=== PATIENT | female | born 1985 | race Caucasian/White ===

== ENCOUNTER → 2019-02-20 | Outpatient (CLI) | payer MEDICAID | LOC: LABWHC1 17:20 | PROVIDERS: ATTEND Family Medicine | DX: R07.9 Chest pain, unspecified (principal) | CPT/HCPCS: 36415; 93005 ==

== ENCOUNTER 2020-10-14 08:37 | Emergency (ER) | payer MEDICAID ==
[2020-10-14 08:56] VITALS: RESP 18
[2020-10-14] MEDS ORDERED: NITROGLYCERIN SL TABS 0.4 MG TAB SUBLINGUAL STA (09:11)
[2020-10-14] MEDS ORDERED: ASPIRIN 81 MG PO STA (09:11)
--- NOTE | 2020-10-14 09:23 | ED ---
Chest Pain HPI - General Chief Complaint: Chest Pain Stated Complaint: Chest/Back Pain Time Seen by Provider: 10/14/20 09:02 Source: patient, RN notes reviewed Mode of arrival: ambulatory Limitations: no limitations - History of Present Illness Initial Comments: 34-year-old female presented emergency Department chief complaint chest, back and shoulder pain. Patient states started a couple days ago. She thought it was initially straight to ALLERGIES and which she is taking Claritin and Benadryl. Patient states that has not helped and she is not taking this morning. Patient states her some pressure feeling. She has some congestion, shortness of breath no fevers or chills no significant headache dizziness abdominal pain. Patient does not have a specific cardiac or lung disease. Patient states she has not taken anything for the pain. Nothing necessarily makes pain feel better or worse at this moment - Related Data Home Medications Medication Instructions Recorded Confirmed Albuterol Inhaler [Ventolin Hfa 1 - 2 puff INHALATION RT-QID PRN 10/14/20 10/14/20 Inhaler] Loratadine [Claritin] 10 mg PO DAILY 10/14/20 10/14/20 diphenhydrAMINE [Benadryl] 25 mg PO QID PRN 10/14/20 10/14/20 Allergies Allergy/AdvReac Type Severity Reaction Status Date / Time No Known Allergies Allergy Verified 10/14/20 09:47 Review of Systems ROS Statement: Those systems with pertinent positive or pertinent negative responses have been documented in the HPI. ROS Other: All systems not noted in ROS Statement are negative. EKG Findings - EKG Comments: EKG Findings:: EKG performed at 9:07 sinus rhythm with short [place], rate of 72 [place] 98 QRS 94 QT/QTC 374/409 EKG was reviewed with prior 02/20/2019, no acute changes. Past Medical History Additional Past Medical History / Comment(s): sees retail stock clerk "off ekg", seasonal allergies History of Any Multi-Drug Resistant Organisms: None Reported Past Surgical History: No Surgical Hx Reported Past Psychological History: No Psychological Hx Reported Smoking Status: Former smoker Past Alcohol Use History: None Reported Past Drug Use History: None Reported General Exam Limitations: no limitations General appearance: alert, in no apparent distress Head exam: Present: atraumatic, normocephalic, normal inspection Eye exam: Present: normal appearance, PERRL, EOMI. Absent: scleral icterus, conjunctival injection, periorbital swelling ENT exam: Present: normal exam, normal oropharynx, mucous membranes moist Neck exam: Present: normal inspection, full ROM. Absent: tenderness, meningismus, lymphadenopathy Respiratory exam: Present: normal lung sounds bilaterally. Absent: respiratory distress, wheezes, rales, rhonchi, stridor Cardiovascular Exam: Present: regular rate, normal rhythm, normal heart sounds. Absent: systolic murmur, diastolic murmur, rubs, gallop, clicks GI/Abdominal exam: Present: soft, normal bowel sounds. Absent: distended, tenderness, guarding, rebound, rigid Neurological exam: Present: alert, oriented X3, CN II-XII intact, reflexes normal. Absent: motor sensory deficit Skin exam: Present: warm, dry, intact, normal color. Absent: rash Course Vital Signs 10/14/20 08:51 Temperature 99.1 F Pulse Rate 86 Respiratory 18 Rate Blood Pressure 137/74 O2 Sat by Pulse 99 Oximetry Chest Pain MDM - [facility] Patient presented for chest discomfort, congestion. Patient is currently varus positive. Patient has no hypoxia. D-dimer is negative. Patient's cardiac enzymes unremarkable EKG has no acute changes. I do feel her symptoms are related t covid Patient symptoms have been present for almost 3 days. Return parameters discussed. Disposition Clinical Impression: Chest wall pain, COVID-19 Disposition: HOME SELF-CARE Condition: Stable Instructions (If sedation given, give patient instructions): Chest Pain (ED) Additional Instructions: Take lern-inf-ktasqvt vitamin C, vitamin D3, zinc.Please return to the Emergency Department if symptoms worsen or any other concerns. Is patient prescribed a controlled substance at d/c from ED?: No Referrals: Nonstaff,Physician [REFERRING] - 1-2 days Time of Disposition: 10:52
[2020-10-14 10:06] LABS: Basophils # (A) 0.1 k/uL (0-0.2); Basophils % (A) 2 %; Eosinophils % (A) 1 %; HCT 39.3 % (34.0-46.0); HGB 13.6 gm/dL (11.4-16.0); Lymphocytes # (A) 0.5 k/uL (1.0-4.8); Lymphocytes % (A) 19 %; MCH 29.4 pg (25.0-35.0); MCHC 34.7 g/dL (31.0-37.0); MCV 84.8 fL (80.0-100.0); Mean Platelet Volume 6.9; Monocytes # (A) 0.2 k/uL (0-1.0); Monocytes % (A) 7 %; Neutrophils # (A) 1.9 k/uL (1.3-7.7); Neutrophils % (A) 68 %; Platelet Count 287 k/uL (150-450); RBC 4.63 m/uL (3.80-5.40); WBC 2.8 k/uL (3.8-10.6)
[2020-10-14 10:18] LABS: ALT 14 U/L (4-34); AST 23 U/L (14-36); African American GFR (CKD) >90 (>60 ml/min/1.73 sqM); Albumin 4.8 g/dL (3.5-5.0); Alkaline Phosphatase 72 U/L (38-126); Anion Gap 9 mmol/L; Blood Urea Nitrogen 10 mg/dL (7-17); Calcium 9.7 mg/dL (8.4-10.2); Carbon Dioxide 22 mmol/L (22-30); Chloride 107 mmol/L (98-107); Glucose 99 mg/dL (74-99); Lipase 52 U/L (23-300); Magnesium 2.1 mg/dL (1.6-2.3); Non-African American GFR(CKD) >90 (>60 ml/min/1.73 sqM); Potassium 4.4 mmol/L (3.5-5.1); Sodium 138 mmol/L (137-145); Total Bilirubin 0.4 mg/dL (0.2-1.3); Total Protein 8.3 g/dL (6.3-8.2)
[2020-10-14 10:22] LABS: D-Dimer 0.27 mg/L FEU (<0.60)
--- NOTE | 2020-10-14 10:52 | XR ---
EXAMINATION TYPE: XR chest 2V DATE OF EXAM: 10/14/2020 COMPARISON: NONE HISTORY: Chest pain, shortness of breath TECHNIQUE: Frontal and lateral views of the chest are obtained. FINDINGS: There is no focal air space opacity, pleural effusion, or pneumothorax seen. The cardiac silhouette size is within normal limits. There are overlying cardiac leads. There is a spinal curvatu re present. The osseous structures are intact. IMPRESSION: No acute cardiopulmonary process.
[2020-10-14 11:01] VITALS: BP 124/82; PULSE 82; TEMP 99.4
== END 2020-10-14 11:15 | disposition home or self-care (01) ==
LOC: EC 08:37
DX: U07.1 COVID-19 (principal); Z79.899 Other long term (current) drug therapy; Z87.891 Personal history of nicotine dependence
CPT/HCPCS: 36415; 71046; 80053; 83690; 83735; 83880; 84484; 85025; 85379; 85610; 85730; 87635; 93005; 99285

== ENCOUNTER → 2022-01-11 | Outpatient (CLI) | payer MEDICAID ==
--- NOTE | 2022-01-11 09:50 | USB ---
Reason for exam: clinical finding. Indicated problem(s): lump or thickening in the left breast. Physical Findings: Nurse did not find any significant physical abnormalities on exam. US Breast LT Left complete breast ultrasound includes all four quadrants, the retroareolar region and axilla. Finding demonstrates a 2.4 x 2.1 x 2.5cm oval, cystic lesion at 3 o'clock. These results were verbally communicated with the patient and result sheet given to the patient on 01/11/22. ASSESSMENT: Benign, BI-RAD 2 RECOMMENDATION: Routine screening mammogram of both breasts at age 39. Manage patient on a clinical basis.
== END | disposition home or self-care (01) ==
LOC: RADUSWWP 07:34
PROVIDERS: ATTEND Family Medicine
DX: N63.25 Unspecified lump in the left breast, overlapping quadrants (principal)

== ENCOUNTER → 2024-02-14 | Outpatient (CLI) | payer MEDICAID ==
--- NOTE | 2024-02-14 13:44 | CA ---
Exercise Stress Test Report Name: Minda Noriega Exam Date: 02/14/2024 11:02 Exam Location: [place] Stress Ht (in): 64 Wt (lb): 175 BSA: 1.85 Ordering Phys: Mirna Hinton MD Referring Phys: SHARI,, Technologist: JUAN JOSE LLAMAS Age: 38 Gender: F : 1985 Procedure CPT: Indications: R94.31 ABNORMAL EKG ICD-10 Codes: Patient History: FAMILY HX Medications: TOYA Meds past 24 hrs: Pretest Chest Pain: STRESS TEST Dusty Protocol Exercise Duration (min:sec): 09:[address] Depressions (mm): Angina Score: Kirk Score: Resting HR (bpm): 65 Peak HR (bpm): 157 Resting BP (mmHg): 130 / 72 Peak BP (mmHg): 176 / 58 MPHR: 181 Target HR: 154 % MPHR: 87 METS: 11.1 Total Dose: Peak Dose: Atropine: Double Product: 53259 BP Response: Stress Termination: Reached target heart rate Stress Symptoms: No chest pain or symptoms Stress Summary: ECG ANALYSIS Resting ECG: Stress ECG: CONCLUSIONS Patient underwent exercise stress EKG with a Dusty protocol treadmill stress test. Patient exercised into Stage 3 for a total of 9 minutes and 30 seconds reaching a total of 11.1 METS. Patient's maximum heart rate was 157 which represented 86% age- predicted maximum heart rate. Stress EKG findings: At baseline patient's EKG showed normal sinus rhythm, normal axis, T-wave inversions 2, 3, aVF, V3 through V6. At peak exercise, EKG showed significant accentuation of baseline EKG abnormalities with more diffuse downsloping ST depressions and T-wave inversions in the inferior and lateral leads. Conclusions: 1. Nonspecific stress EKG portion secondary baseline EKG abnormalities with worsening EKG abnormalities noted with exertion. Consider stress test with imaging modality if clinically indicated. 2. Good exercise capacity. Dr. Virgilio Bermeo DO (Electronically Signed) Final Date: 14 February 2024 13:43
== END | disposition home or self-care (01) ==
LOC: RADNMMAIN 10:43
PROVIDERS: ATTEND Nuclear Medicine Nuclear Cardiology
DX: R94.31 Abnormal electrocardiogram [ECG] [EKG] (principal)
CPT/HCPCS: 93017

== ENCOUNTER → 2024-08-11 | Outpatient (CLI) | payer MEDICAID ==
[2024-08-11 13:31] LABS: Basophils # (A) 0.05 X 10*3/uL (0.00-0.10); Basophils % (A) 0.7 %; Eosinophils # (A) 0.14 X 10*3/uL (0.04-0.35); Eosinophils % (A) 2.1 %; HGB 12.4 g/dL (12.0-15.0); Lymphocytes # (A) 1.91 X 10*3/uL (0.90-5.00); MCH 27.8 pg (27.0-32.0); MCHC 31.8 g/dL (32.0-37.0); MCV 87.4 FL (80.0-97.0); Mean Platelet Volume 10.8 FL (9.5-12.2); Monocytes # (A) 0.45 X 10*3/uL (0.20-1.00); Monocytes % (A) 6.6 %; NRBC Per 100 WBC 0 X 10*3/uL (0.00-0.01); Neutrophils # (A) 4.25 X 10*3/uL (1.80-7.70); Neutrophils % (A) 62.3 %; Platelet Count 377 X 10*3/uL (140-440); RBC 4.46 X 10*6/uL (4.10-5.20); RDW 13.9 % (11.5-14.5); WBC 6.82 X 10*3/uL (4.50-10.00)
[2024-08-11 15:28] LABS: ALT 8 U/L (8-44); AST 13 U/L (13-35); Albumin 4.1 g/dL (3.8-4.9); Albumin/Globulin Ratio 1.46 Ratio (1.60-3.17); Alkaline Phosphatase 70 U/L (41-126); BUN/Creat Ratio 17.17 Ratio (12.00-20.00); Blood Urea Nitrogen 10.3 mg/dL (9.0-27.0); Carbon Dioxide 26.3 mmol/L (21.6-31.8); Chloride 106 mmol/L (96-109); Chol/HDL Ratio 2.77 Ratio; Globulin 2.8 g/dL (1.6-3.3); Glucose 91 mg/dL (70-110); LDL Cholesterol,Calculated 97.5 mg/dL (0.0-131.0); Potassium 4.5 mmol/L (3.5-5.5); Sodium 141 mmol/L (135-145); Total Bilirubin 0.4 mg/dL (0.3-1.2); Total Protein 6.9 g/dL (6.2-8.2); VLDL Calculation 9.76 mg/dL (5.00-40.00)
== END | disposition home or self-care (01) ==
LOC: LABWHC1 09:11
PROVIDERS: ATTEND Family Medicine
DX: Z13.228 Encounter for screening for other metabolic disorders (principal)
CPT/HCPCS: 36415; 80053; 80061; 85025

== ENCOUNTER → 2024-12-11 | Outpatient (CLI) | payer MEDICAID ==
--- NOTE | 2024-12-12 08:31 | MM ---
Reason for Exam: Screening (asymptomatic). Baseline mammogram. Patient History: Menarche at age 11. Patient has no children. Last menstrual period: 12/01/2024 Risk Values: Joya 5 year model risk: 0.6%. NCI Lifetime model risk: 11.1%. Prior Study Comparison: Patient's first Mammogram. No prior studies available for comparison. Tissue Density: The breasts are heterogeneously dense, which may obscure small masses. Findings: Analyzed By CAD. Right breast: There is no suspicious group of microcalcifications or new suspicious mass. Left breast: There is no suspicious group of microcalcifications or new suspicious mass. Overall Assessment: Negative, BI-RAD 1 Management: Screening Mammogram of both breasts in [address] [facility] will attempt to contact patient to return for supplemental views and ultrasound if indicated. Patient should continue monthly self-breast exams. A clinical breast exam by your physician is recommended on an annual basis. This exam should not preclude additional follow-up of suspicious palpable abnormalities. Note on Joya scores and lifetime risk: 1. A Joya score greater than 3% is considered moderate risk. If this is the case, consider specialist referral to assess eligibility for a risk reducing agent. 2. If overall lifetime risk for the development of breast cancer is 20% or higher, the patient may qualify for future screening with alternating mammogram and breast MRI. [facility], , 12/12/2024 8:28 AM. Electronically signed and approved by: Lokesh Ahmadi DO
== END | disposition home or self-care (01) ==
LOC: RADMAMWWP 15:47
PROVIDERS: ATTEND Family Medicine
DX: Z12.31 Encounter for screening mammogram for malignant neoplasm of breast (principal); R92.333 Mammographic heterogeneous density, bilateral breasts
CPT/HCPCS: 77063; 77067

== ENCOUNTER → 2025-02-06 | Outpatient (CLI) | payer MEDICAID ==
--- NOTE | 2025-02-08 10:20 | MR ---
EXAMINATION TYPE: MR ankle RT wo con DATE OF EXAM: 02/06/2025 6:53 AM COMPARISON: None. CLINICAL INDICATION: Female, 39 years old with history of M24.071 loose body R ankle; PHH, Rt ankle p ain and swelling, twisting injury TECHNIQUE: Multi planar, multi sequence imaging was performed. No Gadolinium given. IV Contrast: mL (None.) FINDINGS: LIGAMENTS AND TENDONS: The anterior talofibular ligament, calcaneofibular ligament, posterior talofi bular ligament, tibiofibular ligaments, and deltoid ligament are intact. The anterior compartment, p osterior compartment, lateral compartment, and medial compartment tendons have a normal appearance. The portion of the plantar fascia seen is unremarkable. OSSEOUS STRUCTURES AND CARTILAGE: Bony edema on the talar dome laterally osteochondral defect presen t series 701 image 20 with high PD signal undercutting the fragment on this image also present. Overa ll this area approximately 8 mm transverse by 10 mm AP. The sinus tarsus has a normal signal intensit y. The remainder of the bone marrow signal intensity is within normal limits. A small joint effusion is present. IMPRESSION: Osteochondral defect of the talar dome with bony edema. Fragment does have signal undercutting the fr agment suggesting unstable fragment. [facility], , 02/08/2025 10:17 AM
== END | disposition home or self-care (01) ==
LOC: RADMRIMAIN 06:04
PROVIDERS: ATTEND Podiatrist
DX: M24.071 Loose body in right ankle (principal); M21.6X1 Other acquired deformities of right foot; R60.9 Edema, unspecified; M25.471 Effusion, right ankle

== ENCOUNTER 2025-02-22 05:35 | Day surgery (SDC) | payer MEDICAID ==
[2025-02-20 12:20] VITALS: BMI 32.4
[2025-02-22] MEDS: LACTATED RINGERS 1,000 ML IV ONE (06:32)
[2025-02-22] MEDS: SCOPOLAMINE 1 MG/72 HR PATCH TRANSDERM ONE (06:34)
[2025-02-22] MEDS: LACTATED RINGERS 1,000 ML IV SCH (06:34)
[2025-02-22] MEDS: ONDANSETRON 4 MG/2 ML VIAL IVP ONE (06:34)
[2025-02-22] MEDS: DEXAMETHASONE SOD PHOSPHATE 4 MG/ML 1 ML VIAL IV ONE (06:35)
[2025-02-22] MEDS: MIDAZOLAM 2 MG/2 ML VIAL IV PRN (06:47)
[2025-02-22] MEDS ORDERED: HYDROmorphone 0.5 MG/0.5 ML SYRINGE IVP PRN (07:00)
[2025-02-22] MEDS ORDERED: PROPOFOL 10 MG/ML 20 ML VIAL IV ONE (07:20)
[2025-02-22] MEDS ORDERED: DEXAMETHASONE SOD PHOSPHATE 4 MG/ML 1 ML VIAL ONE (07:20)
[2025-02-22] MEDS ORDERED: diphenhydrAMINE 50 MG/ML 1 ML VIAL ONE (07:20)
[2025-02-22] MEDS ORDERED: ePHEDrine 50 MG/ML 1 ML VIAL ONE (07:20)
[2025-02-22] MEDS ORDERED: fentaNYL (PF) 50 MCG/ML 2 ML AMP ONE (07:20)
[2025-02-22] MEDS ORDERED: WATER FOR INJECTION, STERILE 10 ML VIAL IV ONE (07:20)
[2025-02-22] MEDS ORDERED: KETOROLAC 15 MG/ML 1 ML VIAL ONE (07:20)
[2025-02-22] MEDS ORDERED: ROPIVACAINE 5 MG/ML 30 ML VIAL ONE (07:20)
[2025-02-22] MEDS ORDERED: LIDOCAINE 1% INJ 10MG/ML (20 ML MDV) ONE (07:20)
[2025-02-22] MEDS: ceFAZolin 2 GM in DEXTROSE 5% IN WATER 50 ML IVPB PRN (07:23)
[2025-02-22] MEDS: ceFAZolin 1,000 MG in SODIUM CHLORIDE 0.9% 1,000 ML IRRIGATION ONE (07:44)
[2025-02-22 08:34] VITALS: TEMP 97.6
--- NOTE | 2025-02-22 08:50 | P.OP ---
Date of Procedure: 02/22/25 Preoperative Diagnosis: 1. Right ankle instability 2. Loose body right ankle Postoperative Diagnosis: 1. Same 2. Same Procedure(s) Performed: 1. Secondary repair right lateral ankle ligaments 2. Right ankle arthrotomy with loose body removal Implants: Arthrex internal brace, Arthrex fiber tack anchors x 2 Anesthesia: BEVERLEY Surgeon: Isaiah Jones Estimated Blood Loss (ml): 3 Pathology: none sent Condition: stable Disposition: PACU Description of Procedure: Prior to the patient being brought to the op room, anesthesia administered a nerve block on the operative extremity. The patient was brought into the op room placed on table supine position. Timeout was taken to confirm correct patient identifiers, correct laterality of surgery, and correct procedure. Once all staff in the room was in agreement the timeout, the patient was induced pl aced under general anesthesia. A thigh tourniquet was placed on the operative leg and a wedge beneath the operative hip to internally rotate the leg. The leg was prepped and draped in usual manner. The leg was exsanguinated, the knee flexed, and the tourniquet inflated to 250 mmHg. Attention directed over the anterior lateral ankle where incision was made just anterior to the lateral malleolus. The incision was deepened down to the subcutaneous tissue careful to identify, void, and retracting neurovascular structures and cauterize any bleeding vessels. Blunt dissection was continued through the subcutaneous layer down to the ankle joint capsule. The capsule ligamentous structures were reflected off the anterior surface the lateral malleolus. Rongeur was used to remove the cortical bone on the anterior surface of the lateral malleolus to facilitate ligament readhesion upon repair. The lateral talar dome was visualized that showed the small osteochondral lesion and loose body. Combination of curettes and an elevator used to remove the loose fragments the total surface area was approximately 5 mm x 5 mm. Drilling with a small wire was then performed in the talar bone. Then the area was thoroughly irrigated to remove any of the debris in the ankle joint. Then attention was shifted to the stabilization procedure. The junction between the lateral talar body and neck was palpated which is just anterior to the articular surface. A small stab incision was made through the soft tissue. Drilling for the 4.75 anchor was then done on the talar body. The hole was tapped and then the anchor inserted down to proper depth. Same drill bit was used for the hole in the lateral malleolus for the 3.5 mm anchor. Drilling for the fiber tack anchors was done 1 superior and 1 inferior to the 3.5 mm drill hole. The fiber tack anchors were inserted and impacted down to proper depth. The wound was thoroughly irrigated with antibiotic saline. The suture on the fiber tack anchors was then used to repair the lateral ankle ligaments back down to the lateral malleolus during this time towels were placed on the posterior aspect of the ankle to posterior translate the talus and then the ankle was held in maximum dorsiflexion and eversion. Once that was repair was completed the 2 arms of the 4.75 anchor suture were then placed through the 3.5 mm anchor which was aligned with the drill hole in the lateral malleolus. Utilizing proper tensioning techniques the anchor was inserted with the suture and and advanced down to proper depth At that point stability testing was performed and showed that there was no abnormal anterior translation of the talus in the mortise or varus tilt. The fiber tack anchors was used to sew the soft tissue flap over the repair site a pants over vest fashion. The wound is thoroughly irrigated with antibiotic saline. Subcutaneous closure was done with 4-0 Monocryl. Skin closure was done with 3-0 Stratafix in a running subcuticular manner. Dermal glue was applied allowed to dry. Steri-Strips were placed over the incision. Arthrex jumpstart and dry sterile dressing applied to the ankle. The tourniquet was released and capillary refill returned all digits on the foot. Anesthesia was reversed and the patient taken recovery vital signs stable.
[2025-02-22 08:58] VITALS: RESP 16
[2025-02-22 09:22] VITALS: BP 116/74; PULSE 71
--- NOTE | 2025-02-22 14:32 | P.ANPRN ---
Procedure Note - Anesthesia - Nerve Block Performed Right Adductor Canal Single Time Out Performed: Yes ([id number]) Date of Procedure: 02/22/25 Location of Patient: PreOp Indication: Acute Post-Operative Pain, Dx/Pain Location (left ankle), Requested by Surgeon Specifically requested for management of pain by DrTrace: Isaiah Jones Sedation Type: Sedate with meaningful contact maintained Preparation: Sterile Prep Position: Supine Catheter: None Needle Types: Pajunk Needle Gauge: 21 Ultrasound used to visualize needle placement: Yes Ultrasound used to observe medication spread: Yes Injectate: 0.5% Ropivacaine (see comment for volume) (20 cc + 2 4mg of decadron) Right Popliteal Single Time Out Performed: Yes Date of Procedure: 02/22/25 Location of Patient: PreOp Indication: Acute Post-Operative Pain Sedation Type: Sedate with meaningful contact maintained Position: Left Lateral Catheter: None Needle Types: Pajunk Needle Gauge: 21 Ultrasound used to visualize needle placement: Yes Ultrasound used to observe medication spread: Yes Injectate: 0.5% Ropivacaine (see comment for volume) (20 cc + 4mg of decadron) Blood Aspirated: No Pain Paresthesia on Injection Noted: No Resistance on Injection: Normal Image Stored and Saved: Yes Events: Uneventful and Well Tolerated
== END 2025-02-22 09:43 | disposition home or self-care (01) ==
LOC: OR 05:35
PROVIDERS: ATTEND Podiatrist
DX: M25.371 Other instability, right ankle (principal); M24.071 Loose body in right ankle; G89.18 Other acute postprocedural pain; M93.271 Osteochondritis dissecans, right ankle and joints of right foot; S93.411A Sprain of calcaneofibular ligament of right ankle, initial encounter; S93.491A Sprain of other ligament of right ankle, initial encounter; X58.XXXA Exposure to other specified factors, initial encounter; Z79.899 Other long term (current) drug therapy; Z90.89 Acquired absence of other organs
CPT/HCPCS: 64447; 81025; 64445; 27698; C1713 ×2; J2250; J1200; J1100; J0690 ×2; J2405; J2003; J3010; J2795; J1885; J2704